=== PATIENT | female | born 1965 | race Caucasian/White ===

== ENCOUNTER 2018-08-18 18:19 | Emergency (ER) | payer OTHER ==
[~2018-08-18] VITALS: Ht 195.6 cm; Wt 72.6 kg
--- NOTE | 2018-08-18 18:22 | NUR ---
PATIENT WHEELCHAIR ASSISTED TO BED 2.
[2018-08-18 18:28] VITALS: BP 180/88
--- NOTE | 2018-08-18 18:34 | NUR ---
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 DENIES TRAUMA,V/D.LAST BM NORMAL THIS AM. MED HX: FIBROMYALGIA, LUPUS, CHRONIC IBS, RAYNAUDS, HYPOTHYROIDISM, GALLBLADDER REMOVAL, R KNEE SX, 3 MEDICATION RX: Levothyroxine, Amytriptylin, Percocet. LUNGS CLEAR BL; HR EVEN AND REGULAR. PATIENT STATES PAIN OF 10/10 AT THIS TIME. PATIENT POSITIONED FOR COMFORT; HOB ELEVATED; BEDRAILS UP X2; BED DOWN. ER MD MADE AWARE OF PT STATUS.
--- NOTE | 2018-08-18 18:34 | NUR ---
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 DENIES TRAUMA,V/D.LAST BM NORMAL THIS AM. MED HX: FIBROMYALGIA, LUPUS, CHRONIC IBS, RAYNAUDS, HYPOTHYROIDISM, GALLBLADDER REMOVAL, R KNEE SX, 3 MEDICATION RX: Levothyroxine, Amytriptylin, Percocet. LUNGS CLEAR BL; HR EVEN AND REGULAR. PATIENT STATES PAIN OF 10/10 AT THIS TIME. PATIENT POSITIONED FOR COMFORT; HOB ELEVATED; BEDRAILS UP X2; BED DOWN. ER MD MADE AWARE OF PT STATUS.
--- NOTE | 2018-08-18 19:18 | NUR ---
Pt report given to GIO YUAN. Transfer of care at this time.
--- NOTE | 2018-08-18 20:25 | NUR ---
Dr. Lee evaluating patient at bedside.
[2018-08-18] MEDS ORDERED: KETOROLAC 60 MG/2 ML VIAL IM ONE (20:30)
[2018-08-18 21:02] VITALS: BP 154/90
== END 2018-08-18 21:02 | disposition home or self-care (01) ==
LOC: MED 18:19
DX: R07.89 Other chest pain (principal); N39.0 Urinary tract infection, site not specified; K21.9 Gastro-esophageal reflux disease without esophagitis; E03.9 Hypothyroidism, unspecified; M79.7 Fibromyalgia; Z98.890 Other specified postprocedural states; Z90.49 Acquired absence of other specified parts of digestive tract; Z90.89 Acquired absence of other organs
CPT/HCPCS: 71045; 81002; 93005; 96372; 99283; J1885; Q0092